=== PATIENT | female | born 1980 | race Caucasian/White ===

== ENCOUNTER 2019-02-05 17:00 | Outpatient (RCR) | payer BC, SELFPAY ==
--- NOTE | 2019-01-29 17:55 | HMH.PTOPEV ---
PT Outpatient Evaluation Rehab PT Outpatient Evaluation Start: 01/29/19 16:38 Freq: Status: Active Protocol: Document 01/29/19 16:54 FREDSTEFANIE (Rec: 01/29/19 17:55 CORY [id number]) Electronically Signed By Sanjay Schaefer PT 01/29/19 16:54 Outpatient Therapy Subjective History Subjective History This is the initial Physical Therapy evaluation for Lorrie Bourgeois. Pt is a 38 y/o female referred to PT for c/o LBP. Pt's order is for NOS back strain Pt also reports she has cervical pain. Pt reports 3-4 weeks ago her neck began to ache insidiously while at work and then ~ 1 weeks later her Mid and Low back began hurting and burning. Pt reports her pain increases throughout the day. Chief Complaint Pain Spasms Symptom Type Ache Throb Burning Symptoms Relieved By Rest/Positioning Prescription Meds Symptoms Aggravated By Bending/Stooping Physical Activity Walking Lifting Prior Functional Limitations None Current Functional Limitations Lifting Housework Standing Sitting Recreation Activity Walking Bending/Stooping Symptom Description Constant but Variable Level of pain today (0-10) 3 Pain scale - at its best (0-10) 2 Pain scale - at its worst (0-10) 9 Lumbopelvic Eval Gait Observation General Gait Pattern Observation Antalgic Gait Palapation tenderness bilateral thoracic spinal tenderness No lumbar spinal tenderness Yes paraspinal tenderness No buttock tenderness No tenderness over symphysis pubis No Lumbar/Sacral Palpation Findings Tenderness Lumbar/Sacral Palpation Overall Comment TTP B SIJ Accessory Movement L5 bilateral S1 bilateral Range of Motion Lumbar Spine Active Flexion Range of 80 Motion (degrees) Lumbar Spine Active Extension Range of 30 Motion (degrees) Left Lumbar Spine Lateral Flexion Active 30 Range of Motion (degrees) Right Lumbar Spine
== END 2019-02-05 17:05 | disposition home or self-care (01) ==
LOC: PT 17:00
PROVIDERS: Visit Provider Family Medicine
DX: S39.012D Strain of muscle, fascia and tendon of lower back, subsequent encounter (principal)
CPT/HCPCS: 97010; 97014; 97110; 97140; 97163; G0283

== ENCOUNTER → 2023-02-18 11:12 | Outpatient (CLI) | payer BC, OTHER, SELFPAY ==
--- NOTE | 2023-02-18 11:20 | XR_ITS ---
FINAL REPORT CLINICAL HISTORY: Neck pain for 3 days, nki FINDINGS: CERVICAL SPINE AP and lateral views were obtained. There is no acute fracture. There is no malalignment. The disc spaces are maintained. IMPRESSION: No acute process. Reviewed, Interpreted and Dictated by Jose Vallejo III, MD Transcribed by Mikhail Merchant Authenticated and [facility]
== END ==
PROVIDERS: PCP Family Medicine; Visit Provider Nurse Practitioner Family
DX: M54.2 Cervicalgia (principal)
CPT/HCPCS: 72040

== ENCOUNTER → 2023-03-25 10:29 | Outpatient (CLI) | payer BC, OTHER, SELFPAY ==
--- NOTE | 2023-03-25 10:33 | XR_ITS ---
FINAL REPORT CLINICAL HISTORY: LT SHOULDER PAIN FINDINGS: 3 views of the left shoulder were obtained. There is no acute fracture or dislocation. The joint spaces are intact. There are no soft tissue abnormalities. IMPRESSION: No acute process. Reviewed, Interpreted and Dictated by Jose Vallejo III, MD Transcribed by Mikhail Merchant Authenticated and . [facility]
--- NOTE | 2023-03-25 10:33 | XR_ITS ---
FINAL REPORT CLINICAL HISTORY: CHEST PAIN FINDINGS: Two views of the chest were obtained. The heart size and pulmonary vascularity are within normal limits. The mediastinum is normal. No acute pulmonary abnormality is identified. There is no pneumothorax. The bony thorax is intact. IMPRESSION: No active cardiopulmonary disease. Reviewed, Interpreted and Dictated by Jose Vallejo III, MD Transcribed by Mikhail Merchant Authenticated and [facility]
== END ==
PROVIDERS: PCP Nurse Practitioner Family; Visit Provider Nurse Practitioner Family
DX: R07.9 Chest pain, unspecified (principal); M25.512 Pain in left shoulder
CPT/HCPCS: 71046; 73030

== ENCOUNTER → 2023-04-05 12:39 | Outpatient (CLI) | payer BC, SELFPAY ==
--- NOTE | 2023-04-05 12:45 | MM_ITS ---
PROCEDURE INFORMATION: Exam: MG Bilateral Screening 3D Mammography Exam date and time: 04/05/2023 12:40 PM Age: 42 years old Clinical indication: Screening examination TECHNIQUE: Imaging protocol: Bilateral Screening tomosynthesis and 2D mammography including computer-aided detection (CAD) when performed. COMPARISON: No relevant prior studies available. FINDINGS: MAMMOGRAPHY: Breast composition: There are scattered areas of fibroglandular density. Mass: None. Architectural distortion: None. Calcifications: No suspicious calcifications. Asymmetric density: None. Skin thickening: None. Axillary adenopathy: None. IMPRESSION: No mammographic evidence of malignancy. Annual screening is recommended unless otherwise clinically indicated. ASSESSMENT: BI-RADS Category 1: Negative
--- NOTE | 2023-04-05 12:47 | CT_ITS ---
FINAL REPORT TECHNIQUE: Thin section axial CT images with coronal and sagittal reformats were performed after the administration of IV contrast. This study was performed with techniques to keep radiation doses as low as reasonably achievable (ALARA). Individualized dose reduction techniques using automated exposure control or adjustment of mA and/or kV according to the patient''s size were employed. CLINICAL HISTORY: LYMPHADENOPATHY FINDINGS: There is no significant cervical adenopathy. A tiny nodule is seen in the anterior left parotid gland measuring 5 mm in diameter on image 30 of series 3. Salivary glands are normal. Larynx is unremarkable. Thyroid gland is unremarkable. Cervical vasculature is well opacified. The paranasal sinuses are well aerated. IMPRESSION: No significant cervical lymphadenopathy. Tiny nodule in the left parotid gland. Reviewed, Interpreted and Dictated by Fabio Escalera MD Transcribed by Lexie Betts Authenticated and [facility]
--- NOTE | 2023-04-05 13:25 | CT_ITS ---
FINAL REPORT CLINICAL HISTORY: LYMPHADENOPATHY FINDINGS: CT CHEST WITHOUT AND WITH CONTRAST TECHNIQUE: Axial images through the chest were performed by computed tomography without and with IV contrast. This study was performed with techniques to keep radiation doses as low as reasonably achievable, (ALARA). Individualized dose reduction techniques using automated exposure control or adjustment of mA and/or kV according to the patient's size were employed. FINDINGS: Mediastinal vasculature is well opacified. There is no mediastinal mass or adenopathy. The heart size is normal. There is no pleural or pericardial effusion. A calcified granuloma is seen in the left upper lobe. There is no suspicious mass or nodule. Limited images of the upper abdomen are unremarkable. IMPRESSION: No acute process. Reviewed, Interpreted and Dictated by Fabio Escalera MD Transcribed by Lexie Betts Authenticated and . [facility]
--- NOTE | 2023-04-05 14:53 | MR_ITS ---
FINAL REPORT CLINICAL HISTORY: NECK PAIN burning sensation up neck into shoulder then turns into spasms FINDINGS: Multi planar MR imaging was obtained of the cervical spine with and without contrast. There is abnormal decreased signal throughout the cervical discs, most evident at C5-6. The vertebrae are of normal height. There is no malalignment. The cervical cord demonstrates normal signal and configuration. C2-C3: There is no evidence of significant disc bulge or protrusion. There is no significant facet hypertrophy. C3-C4: There is no evidence of significant disc bulge or protrusion. There is no significant facet hypertrophy. C4-C5: There is no evidence of significant disc bulge or protrusion. There is no significant facet hypertrophy. C5-C6: [id number] diffuse disc bulge with mild broad-based disc protrusion. There is mild central canal stenosis and mild bilateral neural foraminal narrowing. C6-C7: There is no evidence of significant disc bulge or protrusion. There is no significant facet hypertrophy. C7-T1: There is no evidence of significant disc bulge or protrusion. There is no significant facet hypertrophy. Mild contrast enhancement is seen of the C5-6 disc likely due to granulomatous tissue. This is best seen on image 10, series 10. IMPRESSION: Midline disc protrusion at C5-6 with mild bilateral neural foraminal narrowing and central canal stenosis. Mild contrast enhancement of the C5-6 disc likely due to granulomatous tissue. Reviewed, Interpreted and Dictated by Fabio Escalera MD Transcribed by Skye Carter Authenticated and . [facility]
== END ==
PROVIDERS: PCP Nurse Practitioner Family; Visit Provider Nurse Practitioner Family
DX: Z12.31 Encounter for screening mammogram for malignant neoplasm of breast (principal); R59.1 Generalized enlarged lymph nodes
CPT/HCPCS: 70491; 71270; 72156; 76376; 77063; 77067; A9576; Q9967

== ENCOUNTER → 2023-04-25 09:26 | Outpatient (CLI) | payer BC, OTHER, SELFPAY ==
--- NOTE | 2023-04-25 09:32 | US_ITS ---
FINAL REPORT CLINICAL HISTORY: Supra clavicle area mass COMPARISON: CT dated 04/05/2023 FINDINGS: Multi planar MR imaging of the neck soft tissue was performed. The right and left submandibular are within normal limits. The parotids are within normal limits bilaterally. There is a 2.1 x 1.0 cm structure within an echogenic hilum which appears to represent a lymph node. Other smaller lymph nodes are seen in the left neck measuring up to 7 mm. IMPRESSION: 2.1 x 1.0 cm structure which appears to represent a lymph node, favor reactive. Prior CT was reviewed, a corresponding node was not seen. Recommend follow-up ultrasound as clinically indicated. Reviewed, Interpreted and Dictated by Fabio Escalera MD Transcribed by Janelle Ruiz Authenticated and [facility]
== END ==
PROVIDERS: PCP Nurse Practitioner Family; Visit Provider Surgery
DX: M79.89 Other specified soft tissue disorders (principal); R22.1 Localized swelling, mass and lump, neck
CPT/HCPCS: 76536

== ENCOUNTER → 2023-05-30 15:11 | Outpatient (CLI) | payer BC, SELFPAY ==
[2023-05-30 18:03] LABS: Free T4 (Free Thyroxine) 1.02 ng/dl (0.78-2.19)
[2023-05-30 18:16] LABS: Thyroid Stimulating Hormone 2.21 uIU/mL (0.465-4.68)
[2023-06-03 18:53] LABS: Renin Activity, Plasma 3.632 ng/mL/hr (0.167-5.380)
[2023-06-16 13:44] LABS: Chromogranin A 20.7
== END ==
PROVIDERS: PCP Nurse Practitioner Family; Visit Provider Nurse Practitioner Family
DX: I10 Essential (primary) hypertension (principal); Z79.899 Other long term (current) drug therapy
CPT/HCPCS: 82088; 83520; 84244; 84439; 84443

== ENCOUNTER → 2023-06-24 11:01 | Outpatient (POV) | payer BC, SELFPAY ==
--- NOTE | 2023-06-24 11:36 | EXP.PAIN.OV ---
HPI Data of Consult Patient: new to practice Consult date: 06/24/23 Requesting Physician: Myla Schmidt APRN Primary Care Provider: Janelle Rosas APRN Consult Narrative Reason for consult: Neck pain, shoulder blade pain, mid back pain History of present illness: Ms. Bourgeois is a 43 year old female who presents today as a new patient. She is a referral from Janelle Rosas's office. Today she rates her pain a 10 out of 10. Patient states her pain is all in her neck with radiating symptoms under her shoulders and into her mid back. Patient does describe this pain as a constant aching, throbbing sensation. Patient states this has been going on since around November. Patient states that she sneezed and she felt her back give out. Patient states that she then went to the chiropractor which helped provide improvement however when she went back for her following visit that they pushed on a certain area and she had worsening back pain. Patient states this pain has continued ever since and progressively worsened over time. She does state the pain is worse with increased activity and range of motion. She states it does interfere with her ability to perform activities of daily living such as cooking or cleaning. Patient has had physical therapy that did provide some improvement however she states this had to stop due to some cardiac issues. She states she ended up having a non-STEMI and is under the care of her house director now. Patient has tried [id number] medications such as Tylenol and ibuprofen along with heat and ice and topicals with minimal relief. She is currently prescribed cyclobenzaprine 10 mg 3 times daily and in the past was given meloxicam. Patient does use IcyHot and Voltaren cream currently however states it only does okay. Patient denies any thoracic imaging patient is interested in any help we may be able to provide. CC: Myla Schmidt APRN [facility] Disclaimer: The information contained in this section may have been updated after the patient was seen, as this information can be updated by other users. Medical History (Updated 06/24/23 @ 11:39 by Myla Schmidt APRN) Back pain Malignant hypertension Non-STEMI (non-ST elevated myocardial infarction) SOB (shortness of breath) on exertion Stress Surgical History History of Social History Smoking Status: Current every day smoker alcohol intake: current current occupational status: other Travel in the last 8 weeks: None Review of Systems Review of Systems Review of systems:: pertinent systems reviewed and negative unless documented below Review of systems (narrative): Review of Systems: General: No recent weight changes, no fever, no sleep disturbances Respiratory: No cough, no shortness of air, no recurring pulmonary infections Cardiovascular/peripheral vascular: No chest pain, no palpitations, no edema, no shortness of breath Gastrointestinal: No new onset incontinence, normal bowel movements reported Genitourinary: No new onset incontinence Musculoskeletal: Neck pain, shoulder blade pain, mid back pain Psychiatric: [Normal mood/affect] Neurological: [Denies weakness in extremities], [denies balance issues] Meds Home Medications and Allergies Home Medications Medication Instructions Recorded Confirmed Type aspirin 81 mg tablet,delayed 81 mg PO DAILY 05/30/23 05/30/23 History release atorvastatin 40 mg tablet 40 mg PO HS 05/30/23 05/30/23 History carvedilol 12.5 mg tablet 12.5 mg PO BID 05/30/23 05/30/23 History citalopram 10 mg tablet 10 mg PO DAILY 05/30/23 05/30/23 History cyclobenzaprine 10 mg tablet 10 mg PO TID PRN 05/30/23 05/30/23 History hydroxyzine pamoate 25 mg capsule 25 mg PO TID PRN 05/30/23 05/30/23 History lisinopril 10 mg tablet 10 mg PO DAILY 05/30/23 05/30/23 History New Prescriptions to Start Prescriptions:
[2023-06-24 11:56] VITALS: BP 124/88; PULSE 79; RESP 18; O2SAT 96; BMI 29.2
== END ==
PROVIDERS: PCP Nurse Practitioner Family; Visit Provider Nurse Practitioner Family
DX: M50.10 Cervical disc disorder with radiculopathy, unspecified cervical region (principal); M48.02 Spinal stenosis, cervical region
CPT/HCPCS: 99202; G0463

== ENCOUNTER → 2023-06-25 11:10 | Outpatient (CLI) | payer BC, SELFPAY ==
--- NOTE | 2023-06-25 11:14 | XR_ITS ---
FINAL REPORT CLINICAL HISTORY: MID BACK PAIN FINDINGS: LUMBAR SPINE Three views demonstrate no acute fracture. There are minimal hypertrophic changes of degenerative disc disease in the midthoracic spine. There is no malalignment. IMPRESSION: No acute process. Reviewed, Interpreted and Dictated by Fabio Escalera MD Transcribed by Janelle Ruiz Authenticated and . [facility]
== END ==
PROVIDERS: PCP Nurse Practitioner Family; Visit Provider Nurse Practitioner Family
DX: M54.6 Pain in thoracic spine (principal); M54.9 Dorsalgia, unspecified
CPT/HCPCS: 72072

== ENCOUNTER → 2023-07-09 14:23 | Outpatient (CLI) | payer BC, SELFPAY ==
--- NOTE | 2023-07-09 14:27 | MR_ITS ---
FINAL REPORT CLINICAL HISTORY: MID BACK PAIN FINDINGS: Multiplanar MR imaging of the thoracic spine was performed without contrast. On the sagittal T2-weighted images, disc degeneration is seen at multiple levels. There is no evidence of fracture. The vertebral alignment is normal. No bony mass is identified. The thoracic spinal cord has an unremarkable appearance without evidence of mass, edema or syrinx. There is no evidence of canal stenosis or cord compression. On the axial images, no focal disc protrusion is identified. There is no evidence of significant canal stenosis. No paraspinous soft tissue abnormality is seen. IMPRESSION: Degenerative disc disease. Reviewed, Interpreted and Dictated by Jose Vallejo III, MD Transcribed by Janelle Ruiz Authenticated and [facility]
== END ==
PROVIDERS: PCP Nurse Practitioner Family; Visit Provider Nurse Practitioner Family
DX: M54.6 Pain in thoracic spine (principal)
CPT/HCPCS: 72146

== ENCOUNTER → 2023-08-02 10:28 | Outpatient (POV) | payer BC, SELFPAY ==
--- NOTE | 2023-08-02 11:27 | A.OFFVIS_ITS ---
[facility] Pain Management SOAP Note Subjective:: This patient is a very pleasant 43-year-old female comes our clinic today for thoracic MRI follow-up. Patient's thoracic MRI did shows degenerative disc multilevel. Patient's main complaint is left thoracic paraspinous muscle. There is some swelling noted in this area. Patient has extreme point tenderness over this area. She rates her pain 8/10. She is having difficulty sleeping. She is currently taking NSAIDs as well as muscle relaxants. She has been using heat and ice in this area. Patient was going to physical therapy for some time however, the this made the pain worse. I discussed in detail with the patient regarding trigger point injections of the left thoracic paraspinous muscle. She wishes to proceed. I discussed in detail with her and her . Answered their questions. Patient's Clarence #[id number] has been reviewed and appropriate. Objective:: Patient is awake alert [place] x3. No acute distress. Flexion-extension cervical lumbar spine somewhat guarded secondary to pain. Deep tendon reflexes upper lower extremities normal. Motor strength upper and lower extremities normal. There is no gross sensory deficit. Gait is normal Assessment:: Degenerative disc thoracic spine multiple level. Degenerative disc cervical spine multilevel. Multilevel disc bulge cervical spine. Spinal stenosis cervical spine. Plan:: We will proceed with trigger point injections of the left thoracic paraspinous muscle. [facility] Disclaimer: The information contained in this section may have been updated after the patient was seen, as this information can be updated by other users. Medical History Back pain Malignant hypertension Non-STEMI (non-ST elevated myocardial infarction) SOB (shortness of breath) on exertion Stress Surgical History History of Social History (Updated 06/24/23 @ 12:00 by Maricruz Lunsford RN) Smoking Status: Current every day smoker alcohol intake: current substance use type: denies use current occupational status: employed Travel in the last 8 weeks: None
[2023-08-02 12:38] VITALS: BP 148/100; PULSE 76; RESP 18; O2SAT 97; BMI 30.2
== END ==
PROVIDERS: PCP Nurse Practitioner Family; Visit Provider Nurse Anesthetist, Certified Registered
DX: M51.34 Other intervertebral disc degeneration, thoracic region (principal); M50.90 Cervical disc disorder, unspecified, unspecified cervical region; M48.02 Spinal stenosis, cervical region
CPT/HCPCS: 99212; G0463

== ENCOUNTER 2023-08-20 09:55 | Day surgery (SDC) | payer BC, SELFPAY ==
[2023-08-20 10:07] VITALS: BP 146/89; PULSE 84; RESP 20; TEMP 36.6; O2SAT 97; BMI 29.2
[2023-08-20 10:54] VITALS: BP 135/88; PULSE 70; RESP 18; O2SAT 98
[2023-08-20 10:57] VITALS: BP 135/88; PULSE 70; RESP 18; O2SAT 98
--- NOTE | 2023-08-20 11:00 | EXP.PAIN.PRO ---
Procedure Date: 08/20/23 Time: 10:45 Anesthesiologist:: Lew Yip CRNA Complications:: None Pre-procedure Diagnosis:: Myofascial pain left distal trapezius muscle. Post-procedure Diagnosis:: Same. Indications for Procedure:: Patient is a very pleasant 43-year-old female comes our clinic today for trigger point injection of the left distal trapezius muscle. Patient complains of tightness, pain and aching left of the thoracic spine centered over the distal trapezius muscle. Patient rates her pain 8/10. Procedure Details:: Details of the procedure explained to the patient. The patient taken to procedure room placed in the sitting position. The area over the left distal trapezius muscle was cleaned using chlorhexidine as a cleansing solution. After trigger point was identified by palpation a 25-gauge inch and half needle was used to access the left distal trapezius muscle. After negative aspiration 10 mL of a solution containing 40 mg of Depo-Medrol +1% lidocaine and 0.25% Marcaine was injected in a fanning fashion. Patient tolerated the procedure without difficulty. No complications. Plan and Disposition:: Patient was discharged without incident. Patient reports pain decreased to 11/1009 minutes following injection.
[2023-08-20 11:01] VITALS: BP 147/93; PULSE 70
== END 2023-08-20 11:02 | disposition home or self-care (01) ==
LOC: SC.PAINP 09:55
PROVIDERS: PCP Nurse Practitioner Family; Visit Provider Nurse Anesthetist, Certified Registered
DX: M79.18 Myalgia, other site (principal)
CPT/HCPCS: 20552; J1040

== ENCOUNTER → 2023-09-06 09:36 | Outpatient (POV) | payer BC, SELFPAY ==
[2023-09-06 09:55] VITALS: BP 133/84; PULSE 72; RESP 18; O2SAT 97; BMI 29.2
--- NOTE | 2023-09-06 10:00 | EXP.PAIN.SOA ---
[facility] Pain Management SOAP Note Subjective:: Patient is a pleasant 43-year-old female who presents today for follow-up of trigger point injection of the left distal trapezius muscle on 08/20/2023. We are currently treating the patient for degenerative disc disease of cervical and thoracic spine with cervical and thoracic radiculopathy symptoms, myofascial pain left distal trapezius. Today she rates her pain a 4 out of 10. Patient denies any new trauma or injury. She does state following her trigger point injections that it did seem to take a little bit longer before the steroid kicked again however once it did she was able to move around easier and do things like cleaning and cooking around the house. Patient does write improvement of upwards of 60% however she does state that over the last couple of days she did start experiencing worsening pain in the same area around her left shoulder. Patient does describe this as an aching, throbbing sensation that is worse with increased activity and does interfere with abilities to perform activities of daily living. Patient does state that she is interested in repeating her trigger point injections if possible. Patient was prescribed compounded cream however she states that she did not really notice significant improvement. Patient does take NSAIDs as well as muscle relaxers to help with the pain and use heat and ice. Her Clarence has been reviewed and is appropriate. Review of Systems: General: No recent weight changes, no fever, no sleep disturbances Respiratory: No cough, no shortness of air, no recurring pulmonary infections Cardiovascular/peripheral vascular: No chest pain, no palpitations, no edema, no shortness of breath Gastrointestinal: No new onset incontinence, normal bowel movements reported Genitourinary: No new onset incontinence Musculoskeletal: Left shoulder pain Psychiatric: [Normal mood/affect] Neurological: [Denies weakness in extremities], [denies balance issues] Objective:: Physical Exam: General: Alert and oriented x3, no acute distress, pleasant and cooperative Lungs: Respirations even and unlabored, symmetrical chest expansion Eyes: PERRL Musculoskeletal: Flexion and extension of cervical [spine] somewhat guarded secondary to pain, point tenderness along left distal trapezius muscle Neurological: Speech clear, no gross sensory deficit Assessment:: Degenerative disc disease of cervical and thoracic spine with cervical and thoracic radiculopathy symptoms, myofascial pain of distal left trapezius Plan:: Patient is experiencing more point tenderness along her left distal trapezius with limited range of motion of her shoulder and cervical spine. I have discussed with the patient that she may benefit from repeat trigger point injections. Risk and benefits were discussed with the patient and she would like to proceed forward with this plan of care. Patient will be scheduled for trigger point injections of her left distal trapezius. Patient has been instructed to contact the clinic with any concerns before the next appointment. Dr. Cotton has reviewed this note and agrees with this plan of care. This note was dictated using voice recognition software and make contain errors or omissions. [facility] Disclaimer: The information contained in this section may have been updated after the patient was seen, as this information can be updated by other users. Medical History Back pain Malignant hypertension Non-STEMI (non-ST elevated myocardial infarction) SOB (shortness of breath) on exertion Stress Surgical History History of Social History (Updated 08/20/23 @ 10:08 by Maria Luisa Boland RN) Smoking Status: Current every day smoker alcohol intake: current substance use type: denies use current occupational status: employed Travel in the last 8 weeks: None
== END ==
PROVIDERS: Visit Provider Nurse Practitioner Family
DX: M50.10 Cervical disc disorder with radiculopathy, unspecified cervical region (principal); M51.14 Intervertebral disc disorders with radiculopathy, thoracic region; M79.18 Myalgia, other site
CPT/HCPCS: 99212; G0463

== ENCOUNTER 2023-09-24 08:07 | Day surgery (SDC) | payer BC, SELFPAY ==
[2023-09-24 08:18] VITALS: BP 148/93; PULSE 78; RESP 18; TEMP 36.3; O2SAT 97; BMI 29.2
[2023-09-24 08:43] VITALS: BP 162/81; PULSE 68; RESP 18; O2SAT 98
[2023-09-24 08:46] VITALS: BP 162/81; PULSE 70; O2SAT 97
--- NOTE | 2023-09-24 08:49 | P.PCN_ITS ---
Procedure Date: 09/24/23 Time: 08:35 Anesthesiologist:: Lew Yip CRNA Complications:: None Pre-procedure Diagnosis:: Myofascial pain left distal trapezius muscle. Post-procedure Diagnosis:: Same Indications for Procedure:: Patient is a pleasant 43-year-old female comes our clinic today for left distal trapezius muscle trigger point injection. Patient reports pain in this area that she describes as constant, dull, aching. She rates her pain 6/10. Procedure Details:: Details of the procedure explained to the patient. The patient taken procedure room placed in sitting position. The area over the distal trapezius muscle was identified and cleansed with chlorhexidine as a cleansing solution. Using a 25- gauge 1-1/2 inch needle the left distal trapezius muscle was injected in 3 separate areas with 3 cc in each area after negative aspiration of a solution containing 0.25% Marcaine +1% lidocaine and 40 mg of Depo-Medrol. Medication was dispersed in a fanning fashion in 3 separate areas without difficulty. Patient tolerated procedure without difficulty. There are no complications with Plan and Disposition:: Patient was discharged without incident.
[2023-09-24 08:50] VITALS: BP 143/89; PULSE 75; RESP 16; O2SAT 97
== END 2023-09-24 08:50 | disposition home or self-care (01) ==
PROVIDERS: PCP Nurse Practitioner Family; Visit Provider Nurse Anesthetist, Certified Registered
DX: M79.18 Myalgia, other site (principal)
CPT/HCPCS: 20552; J1040

== ENCOUNTER → 2023-10-10 10:01 | Outpatient (POV) | payer BC, SELFPAY ==
[2023-10-10 10:10] VITALS: BP 130/84; PULSE 87; RESP 18; O2SAT 97; BMI 29.2
--- NOTE | 2023-10-10 10:10 | EXP.PAIN.SOA ---
[facility] Pain Management SOAP Note Subjective:: Patient is a pleasant 43-year-old female who presents today for follow-up of trigger point injections of her left distal trapezius muscles on 09/24/2023. We are currently treating the patient for degenerative disc disease of cervical and lumbar spine with cervical and lumbar radiculopathy symptoms, myofascial pain. Today she rates her pain a 3 out of 10. Patient denies any new trauma or injury. She does state the last injections did provide at least 60% improvement and lasted up until the last few days. Patient states she was able to increase her activity with decreased pain symptoms and was overall more functional where she could do more things around the house such as laundry or running errands. Patient does state the pain has started to come back over the last couple days and that she has been using a pillow to help with positioning as well as using IcyHot max for some relief. Patient states that the compounded cream she had prescribed last time did not really provide significant relief. Patient does use [id number] NSAIDs to help as well as continuing to use ice. Her Clarence has been reviewed and is appropriate. Review of Systems: General: No recent weight changes, no fever, no sleep disturbances Respiratory: No cough, no shortness of air, no recurring pulmonary infections Cardiovascular/peripheral vascular: No chest pain, no palpitations, no edema, no shortness of breath Gastrointestinal: No new onset incontinence, normal bowel movements reported Genitourinary: No new onset incontinence Musculoskeletal: Left shoulder pain Psychiatric: [Normal mood/affect] Neurological: [Denies weakness in extremities], [denies balance issues] Objective:: Physical Exam: General: Alert and oriented x3, no acute distress, pleasant and cooperative Lungs: Respirations even and unlabored, symmetrical chest expansion Eyes: PERRL Musculoskeletal: Flexion and extension of cervical [spine] somewhat guarded secondary to pain, point tenderness along the left distal trapezius muscle Neurological: Speech clear, no gross sensory deficit Assessment:: Degenerative disc disease of cervical and lumbar spine with cervical and lumbar radiculopathy symptoms, myofascial pain Plan:: Patient has had significant improvement following her trigger point injections however she is going back to her baseline and did have point tenderness along her left distal trapezius. I have discussed with the patient that she may benefit from additional trigger points at this location. Risk and benefits were discussed with the patient and she would like to proceed forward with this plan of care. Patient will be scheduled for trigger point injections of her left distal trapezius. Patient has been instructed to contact the clinic with any concerns before the next appointment. Dr. Cotton has reviewed this note and agrees with this plan of care. This note was dictated using voice recognition software and make contain errors or omissions. [facility] Disclaimer: The information contained in this section may have been updated after the patient was seen, as this information can be updated by other users. Medical History Back pain Malignant hypertension Non-STEMI (non-ST elevated myocardial infarction) SOB (shortness of breath) on exertion Stress Surgical History History of Social History Smoking Status: Current every day smoker alcohol intake: current substance use type: denies use current occupational status: employed Travel in the last 8 weeks: None
== END ==
PROVIDERS: PCP Nurse Practitioner Family; Visit Provider Nurse Practitioner Family
DX: M50.10 Cervical disc disorder with radiculopathy, unspecified cervical region (principal); M51.16 Intervertebral disc disorders with radiculopathy, lumbar region; M79.10 Myalgia, unspecified site
CPT/HCPCS: 99212; G0463

== ENCOUNTER 2023-10-22 08:49 | Day surgery (SDC) | payer BC, SELFPAY ==
[2023-10-22 09:06] VITALS: BP 122/92; PULSE 64; RESP 20; O2SAT 99; BMI 31.2
--- NOTE | 2023-10-22 09:27 | EXP.PAIN.PRO ---
Procedure Date: 10/22/23 Time: 09:15 Anesthesiologist:: Lew Yip CRNA Complications:: None Pre-procedure Diagnosis:: Myofascial pain left trapezius muscle. Post-procedure Diagnosis:: Same. Indications for Procedure:: Patient is a pleasant 43-year-old female that comes to see us for third round of left distal trapezius muscle trigger point injection. Patient reports significant improvement since her first injection in the left cervical thoracic pain. Procedure Details:: Details of the procedure explained to the patient. The patient taken procedure room placed in the sitting position. The area over the left cervical lumbar area was cleaned using chlorhexidine as a cleansing solution. Using a 25-gauge inch and half needle a 10 mL solution containing 0.25% Marcaine +1% lidocaine and 20 mg of Depo-Medrol was injected in a fanning fashion throughout the left cervical lumbar trapezius muscle as well as rhomboid. Patient tolerated procedure without difficulty. There are no complications. Plan and Disposition:: Patient was discharged without incident.
[2023-10-22 09:33] VITALS: BP 146/80; PULSE 62; RESP 18; O2SAT 99
[2023-10-22 09:37] VITALS: BP 138/91; PULSE 72; RESP 18; O2SAT 97
[2023-10-22 09:38] VITALS: BP 138/91; PULSE 72; RESP 18; O2SAT 97
== END 2023-10-22 09:25 | disposition home or self-care (01) ==
PROVIDERS: PCP Nurse Practitioner Family; Visit Provider Nurse Anesthetist, Certified Registered
DX: M79.18 Myalgia, other site (principal)
CPT/HCPCS: 20552; J1040

== ENCOUNTER → 2023-11-08 09:56 | Outpatient (POV) | payer BC, SELFPAY ==
[2023-11-08 10:45] VITALS: BP 132/90; PULSE 69; RESP 18; O2SAT 98; BMI 31.2
--- NOTE | 2023-11-08 11:01 | EXP.PAIN.SOA ---
[facility] Pain Management SOAP Note Subjective:: Patient is a pleasant 43-year-old female who presents today for follow-up of trigger point injections of her left distal trapezius. We are currently treating the patient for degenerative disc disease of cervical, thoracic and lumbar spine with cervical thoracic and lumbar radiculopathy symptoms, myofascial pain. Today she rates her pain a 2 out of 10. Patient states that this injection did help with 40 to 50% improvement however not as well as her last previous 1. She states that she has been able to move around easier and the pain is not as constant or as bad. Patient states she does feel more functional overall. Patient still would like additional improvement at the 1 area that she continues to have pain at. Patient states that when she leans back it causes pain and that it frequently feels like a catching, pinching sensation that does cause itching even. Patient has tried different positioning devices such as pillows along with compounded cream, Tylenol with minimal relief. Patient does state that she felt like IcyHot helped more than the compounded cream. Patient has previously had physical therapy but had to stop this following having a heart attack however she states that she has gotten a letter from her occupational therapy teacher releasing her and stating that she can start back to physical therapy. Patient is interested in this option as well. Her Clarence has been reviewed and is appropriate. Review of Systems: General: No recent weight changes, no fever, no sleep disturbances Respiratory: No cough, no shortness of air, no recurring pulmonary infections Cardiovascular/peripheral vascular: No chest pain, no palpitations, no edema, no shortness of breath Gastrointestinal: No new onset incontinence, normal bowel movements reported Genitourinary: No new onset incontinence Musculoskeletal: Mid back pain Psychiatric: [Normal mood/affect] Neurological: [Denies weakness in extremities], [denies balance issues] Objective:: Physical Exam: General: Alert and oriented x3, no acute distress, pleasant and cooperative Lungs: Respirations even and unlabored, symmetrical chest expansion Eyes: PERRL Musculoskeletal: Flexion and extension of thoracic [spine] somewhat guarded secondary to pain, [antalgic gait noted] point tenderness along the left thoracic paraspinous muscles Neurological: Speech clear, no gross sensory deficit Assessment:: degenerative disc disease of cervical, thoracic and lumbar spine with cervical thoracic and lumbar radiculopathy symptoms, myofascial pain Plan:: Patient continues to experience significant pain in and around the left side of her mid back with limited range of motion of her thoracic spine. I have discussed with the patient that she may benefit from repeat trigger point injections to this area as well as even possible thoracic medial branch blocks. Risk and benefits were discussed with the patient and she would like to proceed forward with the trigger point injections at this time. I have also discussed with the patient regarding trying TENS unit, acupuncture or even cupping and physical therapy. Patient is agreeable to this option. I will send a evaluation to PT for treatment of her mid back pain. Patient will be scheduled for left trigger point injections of her thoracic paraspinous muscle. Patient has been instructed to contact the clinic with any concerns before the next appointment. Dr. Cotton has reviewed this note and agrees with this plan of care. This note was dictated using voice recognition software and make contain errors or omissions. [facility] Disclaimer: The information contained in this section may have been updated after the patient was seen, as this information can be updated by other users. Medical History Back pain Malignant hypertension Non-STEMI (non-ST elevated myocardial infarction) SOB (shortness of breath) on exertion Stress Surgical History History of Social History (Updated 10/22/23 @ 09:07 by Maria Luisa Boland RN) Smoking Status: Current every day smoker alcohol intake: current substance use type: denies use current occupational status: employed Travel in the last 8 weeks: None
== END ==
LOC: SC.PAIN 09:56
PROVIDERS: PCP Nurse Practitioner Family; Visit Provider Nurse Practitioner Family
DX: M50.10 Cervical disc disorder with radiculopathy, unspecified cervical region (principal); M51.14 Intervertebral disc disorders with radiculopathy, thoracic region; M51.16 Intervertebral disc disorders with radiculopathy, lumbar region; M79.10 Myalgia, unspecified site
CPT/HCPCS: 99212; G0463

== ENCOUNTER 2024-01-13 10:19 | Outpatient (POV) | payer BC, SELFPAY ==
[2024-01-13 10:25] VITALS: BP 140/91; PULSE 88; BMI 31.2
--- NOTE | 2024-01-13 10:35 | A.OFFVIS_ITS ---
[facility] Pain Management SOAP Note Subjective:: Patient is a pleasant 43-year-old female who presents today for follow-up. We are currently treating the patient for degenerative disc disease of cervical, thoracic and lumbar spine with cervical, thoracic and lumbar radiculopathy symptoms, myofascial pain. Today she rates her pain an 8 out of 10. Patient denies any new trauma or injury. Patient states that she is experiencing more pain in and around her left shoulder. Patient states that the physical therapy that she has started back is not seeming to make much difference. She states that the needling did nothing to improve her overall symptoms and that cupping helped a little bit. Patient did previously get 50% in the past with trigger point injections. She is interested in proceeding forward with these injections again. Patient does use IcyHot for her pain however she states that lately she has not even been doing that that is bothering her so bad. Patient states that she cannot lean back due to applying pressure onto the spine. She states that she has not been wearing a bra due to the worsening pain with the straps. Patient does state the pain interferes with her ability perform activities of daily living such as cooking and cleaning. Her Clarence has been reviewed and is appropriate. Review of Systems: General: No recent weight changes, no fever, no sleep disturbances Respiratory: No cough, no shortness of air, no recurring pulmonary infections Cardiovascular/peripheral vascular: No chest pain, no palpitations, no edema, no shortness of breath Gastrointestinal: No new onset incontinence, normal bowel movements reported Genitourinary: No new onset incontinence Musculoskeletal: Left shoulder pain Psychiatric: [Normal mood/affect] Neurological: [Denies weakness in extremities], [denies balance issues] Objective:: Physical Exam: General: Alert and oriented x3, no acute distress, pleasant and cooperative Lungs: Respirations even and unlabored, symmetrical chest expansion Eyes: PERRL Musculoskeletal: Flexion and extension of cervical [spine] somewhat guarded secondary to pain, [antalgic gait noted] point tenderness along left distal trapezius Neurological: Speech clear, no gross sensory deficit Assessment:: degenerative disc disease of cervical, thoracic and lumbar spine with cervical, thoracic and lumbar radiculopathy symptoms, myofascial pain. Plan:: Patient does have point tenderness along her left distal trapezius muscles with palpation. I have discussed the risk and benefits of trigger point injections. I have also discussed with the patient in future she may benefit from cervical epidural steroid injection. We will follow-up with this option after her trigger point injections. Patient will be scheduled for left distal trapezius trigger point injections. Patient has been instructed to contact the clinic with any concerns before the next appointment. Dr. Cotton has reviewed this note and agrees with this plan of care. This note was dictated using voice recognition software and make contain errors or omissions. [facility] Disclaimer: The information contained in this section may have been updated after the patient was seen, as this information can be updated by other users. Medical History SOB (shortness of breath) on exertion Stress Non-STEMI (non-ST elevated myocardial infarction) Back pain Malignant hypertension Surgical History History of Social History (Updated 10/22/23 @ 09:07 by Maria Luisa Boland RN) Smoking Status: Current every day smoker alcohol intake: current substance use type: denies use current occupational status: other Travel in the last 8 weeks: None
== END 2024-01-13 23:59 ==
LOC: SC.PAIN 10:19
PROVIDERS: PCP Nurse Practitioner Family; Visit Provider Nurse Practitioner Family
DX: M50.10 Cervical disc disorder with radiculopathy, unspecified cervical region (principal); M51.14 Intervertebral disc disorders with radiculopathy, thoracic region; M51.16 Intervertebral disc disorders with radiculopathy, lumbar region; M79.10 Myalgia, unspecified site
CPT/HCPCS: 99212; G0463

== ENCOUNTER 2024-02-07 09:51 | Day surgery (SDC) | payer BC, SELFPAY ==
[2024-02-07 10:22] VITALS: BP 136/92; PULSE 81; RESP 18; TEMP 36.4; O2SAT 96; BMI 31.2
[2024-02-07] MEDS: LIDOCAINE 1% 5ML PF VIAL 5 ML (10:40)
[2024-02-07] MEDS: BUPIVACAINE 0.25% 10ML INJ 25 MG IJ (10:40)
[2024-02-07] MEDS: methylPREDNISolone ACETATE 80MG/ML VIAL 80 MG (10:40)
[2024-02-07 10:41] VITALS: BP 112/78; PULSE 86; RESP 18; O2SAT 97
[2024-02-07 10:42] VITALS: BP 112/78; PULSE 84; RESP 18; O2SAT 97
[2024-02-07 10:48] VITALS: BP 117/79; PULSE 82; RESP 18; O2SAT 96
--- NOTE | 2024-02-07 10:51 | P.PCN_ITS ---
Procedure Date: 02/07/24 Time: 10:35 Anesthesiologist:: Lew Yip CRNA Complications:: None Pre-procedure Diagnosis:: Myofascial pain left thoracic paraspinous muscle. Post-procedure Diagnosis:: Same. Indications for Procedure:: Patient is a very pleasant 43-year-old female comes our clinic for a repeat left thoracic paraspinous muscle. Patient has had this area injected in the past with significant improvement. However, only lasting for short time. I discussed in detail with the patient regarding possibility a thoracic epidural steroid injection may improve her overall pain. She will discuss with the nurse practitioner at her next follow-up visit. Thoracic MRI does show degenerative disc thoracic spine. However, no disc bulge. Procedure Details:: Details of the procedure and findings the patient. The patient taken procedure the patient sitting position. The area over the left thoracic paraspinous muscle was cleaned using chlorhexidine as a cleansing solution. Using a 25- gauge inch and half needle the left thoracic paraspinous muscle was injected in 3 separate areas. The injection consisted of 1% lidocaine +0.25% Marcaine +40 mg of Depo-Medrol. 3 cc was injected at each area. Patient tolerated procedure without difficulty. No complications. Plan and Disposition:: Patient was discharged without incident.
== END 2024-02-07 10:48 | disposition home or self-care (01) ==
PROVIDERS: PCP Nurse Practitioner Family; Visit Provider Nurse Anesthetist, Certified Registered
DX: M79.18 Myalgia, other site (principal)
CPT/HCPCS: 20552; J1010

== ENCOUNTER 2024-02-19 08:42 | Outpatient (POV) | payer BC, SELFPAY ==
[2024-02-19 08:48] VITALS: BP 151/97; PULSE 90; RESP 18; O2SAT 95
--- NOTE | 2024-02-19 10:19 | A.OFFVIS_ITS ---
[facility] Pain Management SOAP Note Subjective:: Patient is a pleasant 43-year-old female who presents today for follow-up of trigger point injections of her left thoracic paraspinous muscles on 02/06/2022 for. We are currently treating the patient for degenerative disc disease of cervical and lumbar spine with cervical and lumbar radiculopathy symptoms, myofascial pain. Today she rates her pain a 11 out of 10. Patient denies any new trauma or injury. She states that she did not notice any improvement following these injections and feels like the pain is constant and debilitating. Patient states that laying down is the only relief that she can get. Patient states that she can tolerate any activity such as ADLs of cooking or cleaning due to the pain. Patient has had recent physical therapy however states that they ended up releasing her because she was not having any additional improvement and there was nothing they could proceed forward with doing. Patient has tried and failed conservative therapy such as oral medication, heat and ice and topicals. Her Clarence has been reviewed and is appropriate. Review of Systems: General: No recent weight changes, no fever, no sleep disturbances Respiratory: No cough, no shortness of air, no recurring pulmonary infections Cardiovascular/peripheral vascular: No chest pain, no palpitations, no edema, no shortness of breath Gastrointestinal: No new onset incontinence, normal bowel movements reported Genitourinary: No new onset incontinence Musculoskeletal: Mid back pain, radiating rib pain, neck pain Psychiatric: [Normal mood/affect] Neurological: [Denies weakness in extremities], [denies balance issues] Objective:: Physical Exam: General: Alert and oriented x3, no acute distress, pleasant and cooperative Lungs: Respirations even and unlabored, symmetrical chest expansion Eyes: PERRL Musculoskeletal: Flexion and extension of thoracic [spine] somewhat guarded secondary to pain, [antalgic gait noted] point tenderness noted along lower thoracic spine left-sided Neurological: Speech clear, no gross sensory deficit Assessment:: Neck pain, Mid back pain, rib pain, chronic pain syndrome, myofascial pain Plan:: Patient is experiencing worsening pain throughout her mid back with point tenderness along her left thoracic spine. I have discussed with patient that she may benefit from a thoracic epidural steroid injection. Risk and benefits were discussed with patient and she would like to proceed forward with this plan of care. Patient is not on any blood thinners. Patient has tried and failed conservative therapies including oral medication, heat and ice, topicals, recent physical therapy and continued at home exercising and stretching for longer than 6 weeks. We will schedule the patient for a thoracic epidural steroid injection T11-T12 under fluoroscopy. Patient has been instructed to contact the clinic with any concerns before the next appointment. Dr. Cotton has reviewed this note and agrees with this plan of care. This note was dictated using voice recognition software and make contain errors or omissions. [facility] Disclaimer: The information contained in this section may have been updated after the patient was seen, as this information can be updated by other users. Medical History SOB (shortness of breath) on exertion Stress Non-STEMI (non-ST elevated myocardial infarction) Back pain Malignant hypertension Surgical History History of Social History Smoking Status: Current every day smoker alcohol intake: current substance use type: denies use current occupational status: employed Travel in the last 8 weeks: None
== END 2024-02-19 23:59 ==
LOC: SC.PAIN 08:43
PROVIDERS: PCP Nurse Practitioner Family; Visit Provider Nurse Practitioner Family
DX: M50.10 Cervical disc disorder with radiculopathy, unspecified cervical region (principal); M51.16 Intervertebral disc disorders with radiculopathy, lumbar region; M79.10 Myalgia, unspecified site; R07.81 Pleurodynia; G89.4 Chronic pain syndrome
CPT/HCPCS: 99212; G0463

== ENCOUNTER 2024-03-19 10:59 | Outpatient (POV) | payer BC, SELFPAY ==
[2024-03-19 11:14] VITALS: BP 125/87; PULSE 95; RESP 16; O2SAT 96; BMI 31.2
--- NOTE | 2024-03-19 11:35 | A.OFFVIS_ITS ---
[facility] Pain Management SOAP Note Subjective:: Patient is a pleasant 43-year-old female who presents today for thoracic epidural denials. Today she rates her pain a 5 out of 10. Patient denies any new trauma or injury. She states she continues to have the same pain they are in her mid back that does radiate around with numbness and tingling into her chest. Patient does state that she has continued to try [id number] medications along with heat and ice and topicals such as IcyHot and [place] balm with minimal relief. Patient states that she continues to also do that at home exercising and stretching that they went over in physical therapy however she is still dealing with this chronic pain. Patient is interested in any options we may be able to provide. Patient is still also being followed up with cardiology due to having a heart attack in the past. Her Clarence has been reviewed and is appropriate. Review of Systems: General: No recent weight changes, no fever, no sleep disturbances Respiratory: No cough, no shortness of air, no recurring pulmonary infections Cardiovascular/peripheral vascular: No chest pain, no palpitations, no edema, no shortness of breath Gastrointestinal: No new onset incontinence, normal bowel movements reported Genitourinary: No new onset incontinence Musculoskeletal: Mid back pain Psychiatric: [Normal mood/affect] Neurological: [Denies weakness in extremities], [denies balance issues] Objective:: Physical Exam: General: Alert and oriented x3, no acute distress, pleasant and cooperative Lungs: Respirations even and unlabored, symmetrical chest expansion Eyes: PERRL Musculoskeletal: Flexion and extension of thoracic [spine] somewhat guarded secondary to pain, [antalgic gait noted] Neurological: Speech clear, no gross sensory deficit Assessment:: Degenerative disc disease of cervical and thoracic with cervical and thoracic radiculopathy symptoms, mid back pain,, myofascial pain, rib pain, chronic pain syndrome Plan:: Patient continues to experience significant pain throughout her mid back with limited range of motion. Patient states that her worst pain is all throughout that location and does prevent her from doing any and all activities. I have discussed with patient that I do believe she will still benefit from the thoracic epidural however due to the denial for our note not mentioning numbness and tingling into her chest we will have to wait 60 days to resubmit for this injection. We will send in a temporary 5-day dose of prednisone 20 mg twice daily and also send in a 14-day supply of amitriptyline 25 mg at bedtime. Patient will return to clinic in 1 month for reevaluation of symptoms and plan of care. Patient has been instructed to contact the clinic with any concerns before the next appointment. Dr. Cotton has reviewed this note and agrees with this plan of care. This note was dictated using voice recognition software and make contain errors or omissions. [facility] Disclaimer: The information contained in this section may have been updated after the patient was seen, as this information can be updated by other users. Medical History SOB (shortness of breath) on exertion Stress Non-STEMI (non-ST elevated myocardial infarction) Back pain Malignant hypertension Surgical History History of Social History Smoking Status: Current every day smoker alcohol intake: current substance use type: denies use current occupational status: other Travel in the last 8 weeks: None
== END 2024-03-19 23:59 | disposition home or self-care (01) ==
PROVIDERS: Visit Provider Nurse Practitioner Family
DX: M50.10 Cervical disc disorder with radiculopathy, unspecified cervical region (principal); M51.14 Intervertebral disc disorders with radiculopathy, thoracic region; M79.10 Myalgia, unspecified site; R07.81 Pleurodynia; G89.4 Chronic pain syndrome
CPT/HCPCS: 99212; G0463

== ENCOUNTER 2024-04-20 10:07 | Outpatient (POV) | payer BC, SELFPAY ==
--- NOTE | 2024-04-20 10:40 | EXP.PAIN.SOA ---
[facility] Pain Management SOAP Note Subjective:: Patient is a pleasant 43-year-old female who presents today for follow-up. We are currently treating the patient for degenerative disc disease of cervical and lumbar spine with cervical and lumbar radiculopathy symptoms, myofascial pain. Today she rates her pain a 4 out of 10 however states with increased activity it will jump out to at least a 6. Patient denies any new trauma or injury. She states she still continues to feel like she has worsening pain in her mid back that does radiate towards her chest with numbness and tingling. Patient at one of her last visit was recommended for the thoracic epidural however it was denied by insurance. Patient states she would really like to try this injection and see if it provides significant relief. Patient states currently the pain interferes with her ability to perform activities of daily living such as cooking and cleaning. patient has tried and failed conservative therapy such as oral medication, heat and ice and topicals with recent physical therapy with no additional improvement. Her Clarence has been reviewed and is appropriate. Review of Systems: General: No recent weight changes, no fever, no sleep disturbances Respiratory: No cough, no shortness of air, no recurring pulmonary infections Cardiovascular/peripheral vascular: No chest pain, no palpitations, no edema, no shortness of breath Gastrointestinal: No new onset incontinence, normal bowel movements reported Genitourinary: No new onset incontinence Musculoskeletal: Mid back pain, radiating rib pain, chest pain Psychiatric: [Normal mood/affect] Neurological: [Denies weakness in extremities], [denies balance issues] Objective:: Physical Exam: General: Alert and oriented x3, no acute distress, pleasant and cooperative Lungs: Respirations even and unlabored, symmetrical chest expansion Eyes: PERRL Musculoskeletal: Flexion and extension of thoracic [spine] somewhat guarded secondary to pain, [antalgic gait noted] Neurological: Speech clear, no gross sensory deficit Assessment:: Degenerative disc disease of cervical and thoracic spine with cervical and thoracic radiculopathy symptoms, mid back pain, myofascial pain, rib pain, chronic pain syndrome, chest numbness and tingling Plan:: Patient is experiencing worsening pain in her mid back with radiating symptoms towards her chest with numbness and tingling. Patient had limited range of motion of her thoracic spine. I have reviewed over the risk and benefits of the thoracic epidural and she would like to proceed forward with this plan of care. Patient is not currently on blood thinners. Patient at her last visit was prescribed amitriptyline however she states that she discontinued this medication after the third day due to a lost of taste sensation. Patient will be submitted for a thoracic epidural steroid injection T11-T12 under fluoroscopy. Patient has tried and failed conservative therapy including at home exercising and stretching, heat and ice, topicals, recent physical therapy and continued at home exercising and stretching between injections with no additional changes. Patient has been instructed to contact the clinic with any concerns before the next appointment. Dr. Cotton has reviewed this note and agrees with this plan of care. This note was dictated using voice recognition software and make contain errors or omissions. [facility] Disclaimer: The information contained in this section may have been updated after the patient was seen, as this information can be updated by other users. Medical History SOB (shortness of breath) on exertion Stress Non-STEMI (non-ST elevated myocardial infarction) Back pain Malignant hypertension Surgical History History of Social History Smoking Status: Current every day smoker alcohol intake: current substance use type: denies use current occupational status: other Travel in the last 8 weeks: None
[2024-04-20 10:43] VITALS: BP 122/89; PULSE 91; RESP 16; O2SAT 97; BMI 29.2
== END 2024-04-20 23:59 | disposition home or self-care (01) ==
LOC: SC.PAIN 10:07
PROVIDERS: Visit Provider Nurse Practitioner Family
DX: M50.10 Cervical disc disorder with radiculopathy, unspecified cervical region (principal); M51.14 Intervertebral disc disorders with radiculopathy, thoracic region; M79.18 Myalgia, other site; R07.81 Pleurodynia; G89.4 Chronic pain syndrome; R20.0 Anesthesia of skin
CPT/HCPCS: 99212; G0463

== ENCOUNTER 2024-05-28 10:09 | Outpatient (POV) | payer BC, SELFPAY ==
[2024-05-28 10:15] VITALS: BP 145/90; PULSE 84; RESP 18; O2SAT 98; BMI 31.2
--- NOTE | 2024-05-28 10:44 | EXP.PAIN.SOA ---
[facility] Disclaimer: The information contained in this section may have been updated after the patient was seen, as this information can be updated by other users. Medical History (Updated 05/28/24 @ 10:46 by Myla Schmidt APRN) SOB (shortness of breath) on exertion Stress Non-STEMI (non-ST elevated myocardial infarction) Back pain Malignant hypertension Surgical History History of Family History (Updated 05/28/24 @ 10:15 by Merle Mccray, MEL) Other No significant family history Social History Smoking Status: Current every day smoker alcohol intake: current substance use type: denies use current occupational status: other Travel in the last 8 weeks: None PM Subjective & Objective Subjective Subjective:: Patient is a pleasant 44-year-old female who presents today for insurance denial of thoracic epidural.. Today she rates her pain 2 out of 10 however states that will get much worse as the day goes on. She states that it is still a constant aching, throbbing sensation that is aggravated by the most simple activities or even wearing her brawl. Patient states the pain does interfere with her ability perform activities of daily living such as cooking and cleaning. Patient is interested in any help we can provide as this is affecting her everyday life. Her Clarence has been reviewed and is appropriate. Review of Systems: General: No recent weight changes, no fever, no sleep disturbances Respiratory: No cough, no shortness of air, no recurring pulmonary infections Cardiovascular/peripheral vascular: No chest pain, no palpitations, no edema, no shortness of breath Gastrointestinal: No new onset incontinence, normal bowel movements reported Genitourinary: No new onset incontinence Musculoskeletal: Mid back pain Psychiatric: [Normal mood/affect] Neurological: [Denies weakness in extremities], [denies balance issues] Pain at rest (0-10 scale): 2 Objective Objective:: Physical Exam: General: Alert and oriented x3, no acute distress, pleasant and cooperative Lungs: Respirations even and unlabored, symmetrical chest expansion Eyes: PERRL Musculoskeletal: Flexion and extension of Thoracic[spine] somewhat guarded secondary to pain, [antalgic gait noted] Neurological: Speech clear, no gross sensory deficit Has patient had previous pain injection?: No Conservative treatment options previously tried: Home exercise plan Length of treatment: Longer than 6 weeks Meds Home Medications and Allergies Home Medications ?Medication ?Instructions ?Recorded ?Confirmed ?Type aspirin 81 mg tablet,delayed 81 mg PO DAILY Blood Thinner 05/30/23 04/20/24 History release atorvastatin 40 mg tablet 40 mg PO HS Cholesterol 05/30/23 04/20/24 History carvedilol 12.5 mg tablet 12.5 mg PO BID BLOOD PRESSURE 05/30/23 04/20/24 History citalopram 10 mg tablet 10 mg PO DAILY MOOD 05/30/23 04/20/24 History cyclobenzaprine 10 mg tablet 10 mg PO TID PRN Pain 05/30/23 04/20/24 History hydroxyzine pamoate 25 mg capsule 25 mg PO TID PRN Anxiety 05/30/23 04/20/24 History lisinopril 10 mg tablet 10 mg PO DAILY BLOOD PRESSURE 05/30/23 04/20/24 History amitriptyline 25 mg tablet 25 mg PO HS #14 tabs 03/19/24 04/20/24 Rx prednisone 20 mg tablet 20 mg PO BID #10 tabs 03/19/24 04/20/24 Rx New Prescriptions to Start Prescriptions: Allergies Allergy/AdvReac Type Severity Reaction Status Date / Time No Known Allergies Allergy Verified 02/07/24 10:23 Assessment and Plan *Assessment and plan (1) Chronic thoracic back pain: Status: Acute Qualifiers: Back pain laterality: bilateral Qualified Code(s): M54.6 - Pain in thoracic spine; G89.29 - Other chronic pain Category: Medical Code(s): M54.6 - Pain in thoracic spine; G89.29 - Other chronic pain Plan Patient continues to experience significant pain throughout her mid back with limited range of motion. I have discussed with the patient that I will plan on ordering updated imaging as it has been nearly a year. We will order x-ray with MRI without contrast to follow of her thoracic spine. I will also plan on sending the patient to [facility] in [place] for evaluation of her thoracic pain. Patient was also counseled in future that she may benefit from a spinal cord stimulator trial. Risk and benefits and educational handouts were given at today's visit. Patient will return to clinic in 1 month for reevaluation of symptoms and plan of care. Patient has been instructed to contact the clinic with any concerns before the next appointment. Dr. Cotton has reviewed this note and agrees with this plan of care. This note was dictated using voice recognition software and make contain errors or omissions. All injections are used with Lidocaine or Bupivacaine and Depo Medrol.
--- NOTE | 2024-05-28 15:06 | PC.NURSE ---
referral submitted online for dr. power per Farideh, HISTORICAL ARCHEOLOGIST request.
== END 2024-05-28 23:59 | disposition home or self-care (01) ==
LOC: SC.PAIN 10:09
PROVIDERS: PCP Nurse Practitioner Family; Visit Provider Nurse Practitioner Family
DX: M54.6 Pain in thoracic spine (principal); G89.29 Other chronic pain; F17.210 Nicotine dependence, cigarettes, uncomplicated; I25.2 Old myocardial infarction; I10 Essential (primary) hypertension; Z73.89 Other problems related to life management difficulty; Z79.899 Other long term (current) drug therapy
CPT/HCPCS: 99212; G0463

== ENCOUNTER 2024-05-28 11:01 | Outpatient (CLI) | payer BC, SELFPAY ==
--- NOTE | 2024-05-28 11:04 | XR_ITS ---
FINAL REPORT TECHNIQUE: 3 views CLINICAL HISTORY: MID BACK PAIN FINDINGS: There is no fracture present. There is no malalignment. There is minimal degenerative spurring and disc space narrowing throughout. IMPRESSION: No acute process. Reviewed, Interpreted and Dictated by Emma Prieto MD Transcribed by Janelle Ruiz Authenticated and [facility]
== END 2024-05-28 23:59 | disposition home or self-care (01) ==
LOC: RAD 11:01
PROVIDERS: PCP Nurse Practitioner Family; Visit Provider Nurse Practitioner Family
DX: M54.6 Pain in thoracic spine (principal)
CPT/HCPCS: 72072

== ENCOUNTER 2024-06-18 16:33 | Outpatient (CLI) | payer BC, SELFPAY ==
--- NOTE | 2024-06-18 16:42 | MR_ITS ---
FINAL REPORT CLINICAL HISTORY: LEFT SIDED MID BACK PAIN COMPARISON: July 09, 2023 FINDINGS: Multiplanar MR imaging of the thoracic spine was performed without contrast. On the sagittal T2-weighted images, mild disc degeneration is seen at multiple levels. There is no evidence of fracture. The vertebral alignment is normal. No bony mass is identified. The thoracic spinal cord has an unremarkable appearance without evidence of mass, edema or syrinx. There is no evidence of canal stenosis or cord compression. On the axial images, no focal disc protrusion is identified. There is no evidence of significant canal stenosis. A 5 mm cystic mass is seen in the right posterior chest wall just lateral to the right T5 transverse process seen on series 8 image 21. This is of questionable significance. It was not as well-visualized on the prior study but is visually stable. IMPRESSION: Mild disc degeneration at multiple levels. No focal disc protrusion, significant canal stenosis or evidence of cord compression. Stable 5 mm cystic focus in the right posterior chest wall of questionable significance. If indicated, additional follow-up MRI in 12 months may be helpful to evaluate for continued stability. Authenticated and [facility]
== END 2024-06-18 23:59 | disposition home or self-care (01) ==
LOC: RAD 16:34
PROVIDERS: PCP Nurse Practitioner Family; Visit Provider Nurse Practitioner Family
DX: M54.9 Dorsalgia, unspecified (principal)
CPT/HCPCS: 72146

== ENCOUNTER 2024-06-29 10:08 | Outpatient (POV) | payer BC, SELFPAY ==
[2024-06-29 10:27] VITALS: BP 147/80; PULSE 79; RESP 16; O2SAT 96; BMI 31.2
--- NOTE | 2024-06-29 11:41 | A.OFFVIS_ITS ---
[facility] Disclaimer: The information contained in this section may have been updated after the patient was seen, as this information can be updated by other users. Medical History (Updated 06/29/24 @ 11:43 by Myla Schmidt APRN) SOB (shortness of breath) on exertion Stress Non-STEMI (non-ST elevated myocardial infarction) Back pain Malignant hypertension Surgical History History of Family History (Updated 05/28/24 @ 10:15 by Merle Mccray RN) Other No significant family history Social History Smoking Status: Current every day smoker alcohol intake: current substance use type: denies use current occupational status: other Travel in the last 8 weeks: None PM Subjective & Objective Subjective Subjective:: Patient presents today for follow-up of her thoracic epidural. Today she rates her pain a 5 out of 10. Patient denies any new trauma or injury. She does states she continues to have the chronic pain they are in her mid back more prominent on the left side. She describes it as a aching, burning sensation that does interfere with her ability to perform activities of daily living such as cooking and cleaning. Patient at her last visit was denied for a thoracic epidural due to not having updated imaging. Patient is scheduled to see neurosurgeon on 13 July as well. Patient has tried and failed conservative treatment including recent physical therapy. Her Clarence has been reviewed and is appropriate. Review of Systems: General: No recent weight changes, no fever, no sleep disturbances Respiratory: No cough, no shortness of air, no recurring pulmonary infections Cardiovascular/peripheral vascular: No chest pain, no palpitations, no edema, no shortness of breath Gastrointestinal: No new onset incontinence, normal bowel movements reported Genitourinary: No new onset incontinence Musculoskeletal: Mid back pain Psychiatric: [Normal mood/affect] Neurological: [Denies weakness in extremities], [denies balance issues] Pain at rest (0-10 scale): 5 Objective Objective:: Physical Exam: General: Alert and oriented x3, no acute distress, pleasant and cooperative Lungs: Respirations even and unlabored, symmetrical chest expansion Eyes: PERRL Musculoskeletal: Flexion and extension of thoracic [spine] somewhat guarded secondary to pain, [antalgic gait noted] Neurological: Speech clear, no gross sensory deficit Has patient had previous pain injection?: No Conservative treatment options previously tried: Home exercise plan Length of treatment: Longer than 6 Meds Home Medications and Allergies Home Medications ?Medication ?Instructions ?Recorded ?Confirmed ?Type aspirin 81 mg tablet,delayed 81 mg PO DAILY Blood Thinner 05/30/23 06/29/24 History release atorvastatin 40 mg tablet 40 mg PO HS Cholesterol 05/30/23 06/29/24 History carvedilol 12.5 mg tablet 12.5 mg PO BID BLOOD PRESSURE 05/30/23 06/29/24 History citalopram 10 mg tablet 10 mg PO DAILY MOOD 05/30/23 06/29/24 History cyclobenzaprine 10 mg tablet 10 mg PO TID PRN Pain 05/30/23 06/29/24 History hydroxyzine pamoate 25 mg capsule 25 mg PO TID PRN Anxiety 05/30/23 06/29/24 History lisinopril 10 mg tablet 10 mg PO DAILY BLOOD PRESSURE 05/30/23 06/29/24 History amitriptyline 25 mg tablet 25 mg PO HS #14 tabs 03/19/24 06/29/24 Rx prednisone 20 mg tablet 20 mg PO BID #10 tabs 03/19/24 06/29/24 Rx New Prescriptions to Start Prescriptions: Allergies Allergy/AdvReac Type Severity Reaction Status Date / Time No Known Allergies Allergy Verified 02/07/24 10:23 Assessment and Plan *Assessment and plan (1) Chronic thoracic back pain: Status: Acute Qualifiers: Back pain laterality: bilateral Qualified Code(s): M54.6 - Pain in thoracic spine; G89.29 - Other chronic pain Category: Medical Code(s): M54.6 - Pain in thoracic spine; G89.29 - Other chronic pain (2) Degenerative disc disease, thoracic: Status: Acute Category: Medical Code(s): M51.34 - Other intervertebral disc degeneration, thoracic region (3) Thoracic radiculopathy: Status: Acute Category: Medical Code(s): M54.14 - Radiculopathy, thoracic region Plan Patient is experiencing significant pain throughout her mid back with numbness and tingling and burning sensations. Patient did have limited range of motion of her thoracic spine during today's visit. I did again go over the risk and benefits of possible thoracic epidural and did review over her thoracic MRI that did show multilevel degenerative disc disease with a 5 mm cystic mass at the T5 level. I did discuss that it may be beneficial to do a diagnostic epidural at that location. I did also review over again the risk and benefits of the spinal cord stimulator trial and the patient would like to proceed forward with both options. I will order the patient a psychological evaluation and if they are deemed an appropriate candidate for the device we will proceed forward with a trial at a later date. Patient has tried and failed conservative therapy including continuous at home stretching and exercise for longer than 6 weeks and recent physical therapy. Patient will be scheduled for a T ONESIMO T5-T6 under fluoroscopy. Patient has been instructed to contact the clinic with any concerns before the next appointment. Dr. Cotton has reviewed this note and agrees with this plan of care. This note was dictated using voice recognition software and make contain errors or omissions. All injections are used with Lidocaine or Bupivacaine and Depo Medrol.
== END 2024-06-29 23:59 | disposition home or self-care (01) ==
LOC: SC.PAIN 10:08
PROVIDERS: PCP Nurse Practitioner Family; Visit Provider Nurse Practitioner Family
DX: M51.14 Intervertebral disc disorders with radiculopathy, thoracic region; F17.210 Nicotine dependence, cigarettes, uncomplicated; I21.4 Non-ST elevation (NSTEMI) myocardial infarction; I10 Essential (primary) hypertension; Z73.89 Other problems related to life management difficulty; Z79.899 Other long term (current) drug therapy
CPT/HCPCS: 99212; G0463

== ENCOUNTER → 2024-07-21 09:55 | Day surgery (SDC) | payer BC, SELFPAY ==
[2024-07-21 10:05] VITALS: BP 150/98; PULSE 76; RESP 16; TEMP 36.3; O2SAT 97; BMI 31.2
[2024-07-21 10:17] VITALS: BP 159/87; PULSE 71; RESP 18; O2SAT 97
[2024-07-21] MEDS: methylPREDNISolone ACETATE 80MG/ML VIAL 80 MG (10:17)
[2024-07-21 10:20] VITALS: BP 159/87; PULSE 71; RESP 18; O2SAT 96
[2024-07-21 10:27] VITALS: BP 156/95; PULSE 76; O2SAT 97
--- NOTE | 2024-07-21 10:30 | EXP.PAIN.PRO ---
Procedure Date: 07/21/24 Time: 10:20 Anesthesiologist:: Lew Yip CRNA Complications:: None Pre-procedure Diagnosis:: Degenerative disc thoracic spine. Left-sided thoracic spine pain. Thoracic radiculopathy Post-procedure Diagnosis:: Same. Indications for Procedure:: Patient a very pleasant 44-year-old female comes our clinic today for repeat thoracic epidural steroid injection. Patient describes left-sided thoracic spine pain as constant, dull, aching. Patient had consultation with spine surgery. No surgery or intervention was recommended. She reports having some relief from previous thoracic injections in terms of her left-sided spine pain at the T6 level. She rates her pain today 6/10. Procedure Details:: Procedure:Thoracic epidural steroid injection under fluoroscopy Informed consent was obtained and the risks and benefits of the procedure were explained to the patient. The patient was taken to the procedure room and noninvasive monitors placed, including noninvasive blood pressure cuff and pulse oximeter. The back was viewed using C-Arm fluoroscopy and prepped using Betadine as a cleansing solution and the T6-7 interspace was palpated. Skin and subcutaneous tissues were anesthetized using lidocaine 1.5% and a 25-gauge needle. After this, an 18-gauge Touhy epidural needle was placed into the T6-7 interspace and advanced using fluoroscopic guidance and loss of resistance to air until the epidural space was encountered. After confirmation of needle placement in the epidural space, with dye, a solution containing lidocaine 1.5%, 4 mL and Depo-Medrol 80 mg were incrementally injected into the thoracic epidural space. The patient tolerated the procedure well with no complications. The patient was observed in the Pain Clinic and then discharged home neurologically intact. Plan and Disposition:: Patient was discharged without incident.
== END | disposition home or self-care (01) ==
PROVIDERS: PCP Nurse Practitioner Family; Visit Provider Nurse Anesthetist, Certified Registered
DX: M51.14 Intervertebral disc disorders with radiculopathy, thoracic region (principal)
CPT/HCPCS: 62321; J1010

== ENCOUNTER 2024-08-17 09:00 | Outpatient (POV) | payer BC, SELFPAY ==
[2024-08-17 09:36] VITALS: BP 127/84; PULSE 84; RESP 16; O2SAT 96; BMI 31.2
--- NOTE | 2024-08-17 10:03 | EXP.PAIN.SOA ---
[facility] Disclaimer: The information contained in this section may have been updated after the patient was seen, as this information can be updated by other users. Medical History SOB (shortness of breath) on exertion Stress Non-STEMI (non-ST elevated myocardial infarction) Back pain Malignant hypertension Surgical History History of Family History Other No significant family history Social History Smoking Status: Current every day smoker alcohol intake: current substance use type: denies use current occupational status: other Travel in the last 8 weeks: None PM Subjective & Objective Subjective Subjective:: Patient is a pleasant 44-year-old female who presents today for follow-up of thoracic epidural steroid injection T6-T7 on 07/21/2024. Today she rates her pain a 3 out of 10. Patient states that she did feel different immediately getting up from this injection and that the pain was subsided. She stated that overall she felt pretty good the first day however the next day when she did get up to try and do more activity she immediately had the return of her pain sensations. Patient states it is fairly constant and does interfere with her ability to perform activities of daily living. Patient did complete her psychological evaluation and does state that she would like to proceed forward with the stimulator trial as soon as possible. Her Clarence has been reviewed and is appropriate. Review of Systems: General: No recent weight changes, no fever, no sleep disturbances Respiratory: No cough, no shortness of air, no recurring pulmonary infections Cardiovascular/peripheral vascular: No chest pain, no palpitations, no edema, no shortness of breath Gastrointestinal: No new onset incontinence, normal bowel movements reported Genitourinary: No new onset incontinence Musculoskeletal: Mid back pain Psychiatric: [Normal mood/affect] Neurological: [Denies weakness in extremities], [denies balance issues] Pain at rest (0-10 scale): 3 Objective Objective:: Physical Exam: General: Alert and oriented x3, no acute distress, pleasant and cooperative Lungs: Respirations even and unlabored, symmetrical chest expansion Eyes: PERRL Musculoskeletal: Flexion and extension of thoracic [spine] somewhat guarded secondary to pain, [antalgic gait noted] Neurological: Speech clear, no gross sensory deficit Has patient had previous pain injection?: Yes Percent improvement in pain since last injection: At least 50% for 24 hours Conservative treatment options previously tried: Home exercise plan Length of treatment: Longer than 6 weeks Meds Home Medications and Allergies Home Medications ?Medication ?Instructions ?Recorded ?Confirmed ?Type aspirin 81 mg tablet,delayed 81 mg PO DAILY Blood Thinner 05/30/23 08/17/24 History release atorvastatin 40 mg tablet 40 mg PO HS Cholesterol 05/30/23 08/17/24 History carvedilol 12.5 mg tablet 12.5 mg PO BID BLOOD PRESSURE 05/30/23 08/17/24 History citalopram 10 mg tablet 10 mg PO DAILY MOOD 05/30/23 08/17/24 History cyclobenzaprine 10 mg tablet 10 mg PO TID PRN Pain 05/30/23 08/17/24 History hydroxyzine pamoate 25 mg capsule 25 mg PO TID PRN Anxiety 05/30/23 08/17/24 History lisinopril 10 mg tablet 10 mg PO DAILY BLOOD PRESSURE 05/30/23 08/17/24 History amitriptyline 25 mg tablet 25 mg PO HS #14 tabs 03/19/24 08/17/24 Rx prednisone 20 mg tablet 20 mg PO BID #10 tabs 03/19/24 08/17/24 Rx New Prescriptions to Start Prescriptions: Allergies Allergy/AdvReac Type Severity Reaction Status Date / Time No Known Allergies Allergy Verified 07/21/24 10:14 Assessment and Plan *Assessment and plan (1) Thoracic radiculopathy: Status: Acute Category: Medical Code(s): M54.14 - Radiculopathy, thoracic region (2) Degenerative disc disease, thoracic: Status: Acute Category: Medical Code(s): M51.34 - Other intervertebral disc degeneration, thoracic region Plan Patient only had very temporary relief with her thoracic epidural. I did certified personal finance counselor the patient that her psychological evaluation is not officially back in the computer yet and we do have to wait prior to proceeding forward with the trial. Patient will return to clinic via telehealth appointment in 2 weeks to evaluate her psychological evaluation results. Patient agrees with this plan of care. Patient has been instructed to contact the clinic with any concerns before the next appointment. Dr. Cotton has reviewed this note and agrees with this plan of care. This note was dictated using voice recognition software and make contain errors or omissions. All injections are used with Lidocaine or Bupivacaine and Depo Medrol.
== END 2024-08-17 23:59 | disposition home or self-care (01) ==
PROVIDERS: PCP Nurse Practitioner Family; Visit Provider Nurse Practitioner Family
DX: M51.14 Intervertebral disc disorders with radiculopathy, thoracic region (principal); F17.210 Nicotine dependence, cigarettes, uncomplicated; Z73.89 Other problems related to life management difficulty
CPT/HCPCS: 99212; G0463

== ENCOUNTER 2024-08-31 11:12 | Outpatient (POV) | payer BC, SELFPAY ==
--- NOTE | 2024-08-31 11:54 | A.OFFVIS_ITS ---
[facility] Disclaimer: The information contained in this section may have been updated after the patient was seen, as this information can be updated by other users. Medical History (Updated 08/21/24 @ 14:50 by Char Hernandez [facility]) SOB (shortness of breath) on exertion Stress Non-STEMI (non-ST elevated myocardial infarction) Back pain Malignant hypertension Surgical History History of Family History Other No significant family history Social History Smoking Status: Current every day smoker alcohol intake: current substance use type: denies use current occupational status: other Travel in the last 8 weeks: None PM Subjective & Objective Subjective Subjective:: Patient is a pleasant 44-year-old female who presents today for 2-week follow-up via telehealth appointment. Today she rates her pain a 1 out of 10 however she states she literally just got up from the bed to take this phone call. She states that the pain will easily go to a 5 out of 10 when she is up doing more. Patient states that yesterday her pain was much worse and still remains all in her mid back with radiating numbness and tingling. Patient did have her psychological evaluation however the reports was not in the computer system at the last visit. Patient does state that she still would like to proceed forward with the spinal cord stimulator patient has tried and failed conservative therapy including continued at home stretching exercise for longer than 12 weeks. Her Clarence has been reviewed and is appropriate. Review of Systems: General: No recent weight changes, no fever, no sleep disturbances Respiratory: No cough, no shortness of air, no recurring pulmonary infections Cardiovascular/peripheral vascular: No chest pain, no palpitations, no edema, no shortness of breath Gastrointestinal: No new onset incontinence, normal bowel movements reported Genitourinary: No new onset incontinence Musculoskeletal: Chronic mid back pain Psychiatric: [Normal mood/affect] Neurological: [Denies weakness in extremities], [denies balance issues] Pain at rest (0-10 scale): 5 Objective Objective:: Physical Exam: General: Alert and oriented x3, no acute distress, pleasant and cooperative Lungs: Respirations even and unlabored, symmetrical chest expansion Eyes: PERRL Musculoskeletal: Flexion and extension of thoracic [spine] somewhat guarded secondary to pain, [antalgic gait noted] Neurological: Speech clear, no gross sensory deficit Has patient had previous pain injection?: No Conservative treatment options previously tried: Home exercise plan Length of treatment: Longer than 12 weeks Meds Home Medications and Allergies Home Medications ?Medication ?Instructions ?Recorded ?Confirmed ?Type aspirin 81 mg tablet,delayed 81 mg PO DAILY Blood Thinner 05/30/23 08/17/24 History release atorvastatin 40 mg tablet 40 mg PO HS Cholesterol 05/30/23 08/17/24 History carvedilol 12.5 mg tablet 12.5 mg PO BID BLOOD PRESSURE 05/30/23 08/17/24 History citalopram 10 mg tablet 10 mg PO DAILY MOOD 05/30/23 08/17/24 History cyclobenzaprine 10 mg tablet 10 mg PO TID PRN Pain 05/30/23 08/17/24 History hydroxyzine pamoate 25 mg capsule 25 mg PO TID PRN Anxiety 05/30/23 08/17/24 History lisinopril 10 mg tablet 10 mg PO DAILY BLOOD PRESSURE 05/30/23 08/17/24 History amitriptyline 25 mg tablet 25 mg PO HS #14 tabs 03/19/24 08/17/24 Rx prednisone 20 mg tablet 20 mg PO BID #10 tabs 03/19/24 08/17/24 Rx New Prescriptions to Start Prescriptions: Allergies Allergy/AdvReac Type Severity Reaction Status Date / Time No Known Allergies Allergy Verified 07/21/24 10:14 Assessment and Plan *Assessment and plan (1) Degenerative disc disease, thoracic: Status: Acute Category: Medical Code(s): M51.34 - Other intervertebral disc degeneration, thoracic region (2) Chronic thoracic back pain: Status: Acute Qualifiers: Back pain laterality: bilateral Qualified Code(s): M54.6 - Pain in thoracic spine; G89.29 - Other chronic pain Category: Medical Code(s): M54.6 - Pain in thoracic spine; G89.29 - Other chronic pain (3) Thoracic radiculopathy: Status: Acute Category: Medical Code(s): M54.14 - Radiculopathy, thoracic region Plan Patient was reviewed over the psychological evaluation and she was deemed an appropriate candidate for the spinal cord stimulator. Patient was reviewed over the risk and benefits and she would like to proceed forward with this plan of care. Patient has tried and failed conservative therapy including continued at home stretching exercises for longer than 12 weeks. Patient will be submitted for the spinal cord stimulator trial under fluoroscopy. This visit is occurring at the patient's home and she did give verbal consent for this appointment. This appointment lasted from 09 21-09 27. Patient has been instructed to contact the clinic with any concerns before the next appointment. Dr. Cotton has reviewed this note and agrees with this plan of care. This note was dictated using voice recognition software and make contain errors or omissions. All injections are used with Lidocaine or Bupivacaine and Depo Medrol.
== END 2024-08-31 23:59 | disposition home or self-care (01) ==
LOC: SC.PAIN 11:13
PROVIDERS: Visit Provider Nurse Practitioner Family
DX: M51.14 Intervertebral disc disorders with radiculopathy, thoracic region (principal); G89.29 Other chronic pain; F17.210 Nicotine dependence, cigarettes, uncomplicated
CPT/HCPCS: 99212; G0463

== ENCOUNTER 2024-11-13 07:34 | Day surgery (SDC) | payer BC, SELFPAY ==
[2024-11-11 10:57] VITALS: BMI 27.4
[2024-11-13 08:20] VITALS: BP 154/104; PULSE 83; RESP 17; TEMP 36.8; O2SAT 94
[2024-11-13] MEDS: VANCOMYCIN/WATER FOR INJ (PEG) 1.25 GM/250 ML PIGGYBACK IV (08:27)
[2024-11-13] MEDS: LACTATED RINGERS 1000ML 1,000 ML 25 ML IV (08:29)
[2024-11-13 08:36] LABS: Basophils % 0.5 % (0.1-2.0); Eosinophils # 0.2 K/mm3 (0.0-0.4); Eosinophils % 2.7 % (0.1-12.0); Hematocrit 40.4 % (37.0-47.0); Hemoglobin 13.4 g/dL (12.2-16.2); Lymphocytes # 3.1 K/mm3 (0.7-4.5); Lymphocytes % 38.7 % (10-50); Mean Corpuscular HGB Conc 33.2 g/dL (31.8-35.4); Mean Corpuscular Hemoglobin 31.4 pg (27.0-31.2); Mean Corpuscular Volume 94.6 fl (81-99); Monocytes # 0.6 K/mm3 (0.1-1.0); Neutrophils # 3.9 K/mm3 (1.8-7.8); Neutrophils % 49.5 % (37.0-80.0); Platelet Count 303 K/mm3 (142-424); Red Blood Count 4.27 M/mm3 (4.20-5.40); Red Cell Distribution Width 13.7 % (11.5-17.5); White Blood Count 7.9 K/mm3 (4.8-10.8)
[2024-11-13 08:51] LABS: Anion Gap 15.1 mEq/L (5-15); Blood Urea Nitrogen 10 mg/dl (7-17); Calcium 8.9 mg/dl (8.4-10.2); Carbon Dioxide 19 mmol/L (22.0-30.0); Chloride 108 mmol/L (98-107); Creatinine Clearance Estimated 109 mL/min (50-200); Estimated Glomerular Filt Rate 90 ml/min (>60); GFR (African American) 109 ML/MIN (>60); Glucose 107 mg/dl (74-100); Potassium 4.1 mmoL/L (3.5-5.1); Sodium 138 mmol/L (136-145)
[2024-11-13 09:11] LABS: HCG Qualitative, Serum Negative (Negative)
--- NOTE | 2024-11-13 09:56 | P.PNANES_ITS ---
[facility] Disclaimer: The information contained in this section may have been updated after the patient was seen, as this information can be updated by other users. Medical History SOB (shortness of breath) on exertion Stress Non-STEMI (non-ST elevated myocardial infarction) Back pain Malignant hypertension Surgical History History of Family History Other No significant family history Social History Smoking Status: Current every day smoker alcohol intake: current substance use type: denies use current occupational status: disabled Travel in the last 8 weeks: None Have you lived/traveled outside [place] in past 30 days?: No Contact w/someone who lives/traveled outside US past 30 days?: No Exposure to someone with infectious disease in past 14 days?: No Do you have a fever (greater than 100.4 F or 38 C)?: No Have you tested positive for COVID-19: No Exposed to someone with COVID-19 in past 14 days?: No Do you have a sore throat?: No Do you have a cough?: No Do you have any weakness?: No Do you have any diarrhea?: No Are you experiencing any unusual bleeding?: No Do you have any muscle aches/pain?: No Do you have any abdominal pain?: No Are you experiencing loss of taste or smell?: No [facility] Anesthesia Checklist Patient Identification Patient Identification: Arm Band and Verbal (Name & ) Structural Data Admitted From: Home Planned Operative Procedure/s: SC TRIAL STIMULATOR Consent for Planned Operative Procedure(s) Verified: Yes Verified Documents: Surgical Consent and History and Physical NPO Status Verified Time NPO: 00:00 Chart Verification Results Verified: HCG Additional verifications Anesthesia Reactions: No Hx Blood Transfusions: No Blood Transfusion Reaction: No Airway Assessment Mallampati Score:: Class III C-Spine Mobility Assessed: Yes TMJ Mobility Assessed: Yes Dentition: Poor Dentition Neurological Assessment Level of Consciousness: Awake Hx Seizures: No Numbness or tingling in extremities: No Anesthesia Plan Anesthesia Risk discussed: Yes Anesthesia Plan: Verified ASA Class: III Anesthesia Type: MAC
[2024-11-13] MEDS: LIDOCAINE 1% W/EPI 1:100,000 20ML VIAL 40 ML (10:26)
[2024-11-13 10:35] VITALS: BP 157/101; PULSE 89; RESP 16; TEMP 36.9; O2SAT 98
[2024-11-13 10:45] VITALS: BP 137/110; PULSE 84; RESP 16; O2SAT 99
[2024-11-13 10:55] VITALS: BP 145/103; PULSE 84; RESP 16; O2SAT 98
[2024-11-13 11:05] VITALS: BP 152/100; PULSE 76; RESP 16; O2SAT 99
--- NOTE | 2024-11-13 11:06 | EXP.OP.NOTE ---
Date of procedure: 11/13/24 Pre-op Diagnosis:: Degenerative disc disease of thoracic spine with thoracic radiculopathy symptom Post-op Diagnosis:: Same Procedure performed:: Spinal cord stimulator trial with epidural lead placement x 2 Surgeon:: Freddy Cotton MD [employer]:: Dameon Richardson Anesthesia: MAC Estimated blood loss (mL): 1 Clinical Note:: Patient is a pleasant 44-year-old white female who we are treating for pain in the left scapular area. She has degenerative disease of the thoracic spine with thoracic radicular symptoms. She has failed all previous conservative treatments including injections, oral medications, physical therapy and she is not a candidate for surgery. She has had a successful psychological evaluation. She presents for spinal cord stimulator trial today. Operative findings:: None Operative note:: Informed consent was obtained risk and benefits of the procedure were explained to the patient. Patient was taken to the operating room. The skin and subcutaneous tissues were anesthetized using lidocaine. A 17-gauge epidural needle was inserted and advanced into the L1-L2 interspace. After confirmation needle placement in the epidural space stimulator lead was inserted and advanced very easily to the T2-T3-T4 vertebral bodies. This lead was left of midline. A second lead was placed again entering the L1-L2 interspace and the second lead was inserted and advanced very easily to the T3-T4-T5 vertebral bodies. Again this was left of midline. Leads were in good position there are posterior and left of midline. Patient tolerated the procedure well with no complications. The needles were removed and stylets were removed the leads were secured in place. The patient was programmed by the [employer] sales representative. Patient was discharged home with good relief of pain symptoms and was placed on a paresthesia free program. Patient was discharged home neurologic intact with good relief of pain symptoms. Plan and disposition: Will follow-up with this patient in 1 week for lead pull. If successful we will plan on permanent placement with the [employer] system. Will place patient on Bactrim DS twice a day for 5 days for postprocedure antibiotic prophylaxis. Condition: stable Disposition: PACU Complications:: None
== END 2024-11-13 11:20 | disposition home or self-care (01) ==
PROVIDERS: PCP Nurse Practitioner Family; Visit Provider Anesthesiology
PROC: (CPT 63650; principal; 2024-11-13 09:10)
DX: M51.14 Intervertebral disc disorders with radiculopathy, thoracic region (principal)
CPT/HCPCS: 63650; 80048; 84703; 85025; 96374; C1778; J2250; J3372; J7120

== ENCOUNTER 2024-11-20 13:55 | Outpatient (POV) | payer BC, SELFPAY ==
[2024-11-20 14:17] VITALS: BP 126/79; PULSE 91; RESP 16; O2SAT 97; BMI 31.2
--- NOTE | 2024-11-20 15:13 | A.OFFVIS_ITS ---
[facility] Disclaimer: The information contained in this section may have been updated after the patient was seen, as this information can be updated by other users. Medical History SOB (shortness of breath) on exertion Stress Non-STEMI (non-ST elevated myocardial infarction) Back pain Malignant hypertension Surgical History History of Family History Other No significant family history Social History Smoking Status: Current every day smoker alcohol intake: current substance use type: denies use current occupational status: other Travel in the last 8 weeks: None PM Subjective & Objective Subjective Subjective:: Patient is a pleasant 44-year-old female who presents today for follow-up of her spinal cord stimulator trial on 11/13/2024. Today she rates her pain a 5 out of 10. Patient states that initially she did have about 2 to 3 days of significant improvement around 80% however after that it seemed to aggravate some of those symptoms and she still continued to feel the pain that she had initially. Patient does state that she really does feel like it is more muscular. Patient denies any other changes. Her Clarence has been reviewed and is appropriate. Review of Systems: General: No recent weight changes, no fever, no sleep disturbances Respiratory: No cough, no shortness of air, no recurring pulmonary infections Cardiovascular/peripheral vascular: No chest pain, no palpitations, no edema, no shortness of breath Gastrointestinal: No new onset incontinence, normal bowel movements reported Genitourinary: No new onset incontinence Musculoskeletal: Mid back pain Psychiatric: [Normal mood/affect] Neurological: [Denies weakness in extremities], [denies balance issues] Pain at rest (0-10 scale): 5 Objective Objective:: Physical Exam: General: Alert and oriented x3, no acute distress, pleasant and cooperative Lungs: Respirations even and unlabored, symmetrical chest expansion Eyes: PERRL Musculoskeletal: Flexion and extension of thoracic [spine] somewhat guarded secondary to pain, [antalgic gait noted] Neurological: Speech clear, no gross sensory deficit Has patient had previous pain injection?: No Conservative treatment options previously tried: Home exercise plan Length of treatment: Longer than 12 weeks Meds Home Medications and Allergies Home Medications ?Medication ?Instructions ?Recorded ?Confirmed ?Type aspirin 81 mg tablet,delayed 81 mg PO DAILY Blood Thinner 05/30/23 11/20/24 History release atorvastatin 40 mg tablet 40 mg PO HS Cholesterol 05/30/23 11/20/24 History carvedilol 12.5 mg tablet 12.5 mg PO BID BLOOD PRESSURE 05/30/23 11/20/24 History lisinopril 10 mg tablet 10 mg PO DAILY BLOOD PRESSURE 05/30/23 11/20/24 History sulfamethoxazole 800 1 tab PO BID #14 tabs 11/13/24 11/20/24 Rx mg-trimethoprim 160 mg tablet (Bactrim DS) New Prescriptions to Start Prescriptions: Allergies Allergy/AdvReac Type Severity Reaction Status Date / Time No Known Allergies Allergy Verified 11/13/24 08:14 Assessment and Plan *Assessment and plan (1) Degenerative disc disease, thoracic: Status: Acute Category: Medical Code(s): M51.34 - Other intervertebral disc degeneration, thoracic region (2) Thoracic radiculopathy: Status: Acute Category: Medical Code(s): M54.14 - Radiculopathy, thoracic region (3) Chronic thoracic back pain: Status: Acute Qualifiers: Back pain laterality: bilateral Qualified Code(s): M54.6 - Pain in thoracic spine; G89.29 - Other chronic pain Category: Medical Code(s): M54.6 - Pain in thoracic spine; G89.29 - Other chronic pain Plan Patient did have significant relief for about 2 to 3 days of the 7-day trial. Patient did end up turning the stimulator off. I did discuss with the patient that I would like to see her back after a washout. To see if she is still stating that she felt like the stimulator only gave some improvement. Patient did initially have about 80% relief. I did also discuss with the patient in future it may be worthwhile to try a intrathecal pain pump trial. Risk and benefits were discussed with patient and we will follow-up with this at future visits. Patient will return to clinic in 2 weeks for reevaluation of symptoms and plan of care. We did remove her spinal cord stimulator leads with them intact. Patient has been instructed to contact the clinic with any concerns before the next appointment. Dr. Cotton has reviewed this note and agrees with this plan of care. This note was dictated using voice recognition software and make contain errors or omissions. All injections are used with Lidocaine, Bupivacaine and Depo Medrol. Occasionally urine drug screen is needed to verify patient's compliance with our office pain contract. This is ordered based off specific treatments related to chronic pain with the potential to abuse certain medications.
== END 2024-11-20 23:59 | disposition home or self-care (01) ==
LOC: SC.PAIN 13:56
PROVIDERS: PCP Nurse Practitioner Family; Visit Provider Nurse Practitioner Family
DX: M51.14 Intervertebral disc disorders with radiculopathy, thoracic region (principal); G89.29 Other chronic pain; F17.210 Nicotine dependence, cigarettes, uncomplicated
CPT/HCPCS: 99212; 99213; G0463